=== PATIENT | male | born 1975 | race Caucasian/White ===

== ENCOUNTER → 2017-12-16 | Day surgery (SDC) | payer BC ==
[~2017-12-16] MED LIST: LIDOCAINE 1%/EPI 1:100,000 20 ML VIAL. INJ
== END | disposition home or self-care (01) ==
LOC: SURG 10:09
DX: L91.8 Other hypertrophic disorders of the skin (principal); Z88.0 Allergy status to penicillin; F17.210 Nicotine dependence, cigarettes, uncomplicated; Z79.899 Other long term (current) drug therapy
CPT/HCPCS: 11200; 88304; J3490